=== PATIENT | female | born 1990 | race Hispanic/Latino ===

== ENCOUNTER 2018-03-01 20:21 | Emergency (ER) | payer SELFPAY ==
[2018-03-01] MEDS ORDERED: ACETAMINOPHEN 325 MG TAB ONE (20:36)
== END 2018-03-01 21:34 | disposition home or self-care (01) ==
LOC: EDH 20:21
DX: S93.491A Sprain of other ligament of right ankle, initial encounter (principal); W01.0XXA Fall on same level from slipping, tripping and stumbling without subsequent striking against object, initial encounter; Y93.89 Activity, other specified; Y92.89 Other specified places as the place of occurrence of the external cause; Y99.8 Other external cause status
CPT/HCPCS: 73610

== ENCOUNTER 2019-04-02 22:20 | Emergency (ER) | payer OTHER ==
[2019-04-02 23:39] LABS: RAPID GROUP A STREP NEGATIVE (NEGATIVE)
== END 2019-04-03 00:38 | disposition home or self-care (01) ==
LOC: EDH 22:20
DX: J06.9 Acute upper respiratory infection, unspecified (principal); H92.09 Otalgia, unspecified ear
CPT/HCPCS: 87804; 87880

== ENCOUNTER 2020-01-30 21:41 | Observation (INO) | payer MEDICAID ==
[~2020-01-30] VITALS: Ht 162.6 cm; Wt 75.7 kg
[2020-01-30] MEDS ORDERED: LACTATED RINGERS 1000ML 1,000 ML IV SCH ×2 (22:00→23:30)
[2020-01-30 22:20] LABS: BILIRUBIN,URINE Negative (NEGATIVE); COLOR,URINE Yellow (YELLOW); GLUCOSE, URINE (UA) Negative (NEGATIVE); KETONES,URINE Negative (NEGATIVE); LEUKOCYTE ESTERASE ,URINE Negative (NEGATIVE); NITRATE,URINE Negative (NEGATIVE); OCCULT BLOOD,URINE Negative (NEGATIVE); PH,URINE 7.5 (5.0-8.0); PROTEIN,URINE Negative (NEGATIVE)
[2020-01-30 22:22] LABS: APPEARANCE,URINE CLOUDY (CLEAR)
[2020-01-30 22:29] LABS: AMPHET/METH SCREEN,URINE NEGATIVE (NEGATIVE); BARBITURATE SCREEN, URINE NEGATIVE (NEGATIVE); BENZODIAZEPINES SCREEN,URINE NEGATIVE (NEGATIVE); CANNABINOID SCREEN,URINE NEGATIVE (NEGATIVE); COCAINE SCREEN,URINE NEGATIVE (NEGATIVE); OPIATE SCREEN,URINE NEGATIVE (NEGATIVE); PHENCYCLIDINE SCREEN,URINE NEGATIVE (NEGATIVE)
[2020-01-30 22:57] VITALS: BP 104/59
[2020-01-30] MEDS ORDERED: PREN-196 PO (23:00)
[2020-01-30 23:05] LABS: BACTERIA,URINE Rare /HPF (None Seen); RBC,URINE 0-1 /HPF (0-1); WBC,URINE 0-1 /HPF (0-1)
[2020-01-30 23:06] LABS: AMORPHOUS SEDIMENT,UR Moderate /LPF (None Seen)
[2020-01-30] MEDS ORDERED: CEFTRIAXONE SODIUM 1 GM IVP SCH (23:30)
[2020-01-30] MEDS: TERBUTALINE SULFATE VIAL 1MG/ML SQ SCH (23:53)
[2020-01-31] MEDS: TERBUTALINE SULFATE VIAL 1MG/ML SQ SCH (01:05)
== END 2020-01-31 03:40 | disposition home or self-care (01) ==
LOC: EDH 21:41 → LDH 21:42
PROVIDERS: ADMIT Obstetrics & Gynecology; ATTEND Obstetrics & Gynecology
DX: O99.413 Diseases of the circulatory system complicating pregnancy, third trimester (principal); Z3A.30 30 weeks gestation of pregnancy
CPT/HCPCS: 80305; 81001; 96372 ×2; 96374; 99284; G0378 ×4; J0696; J3105; J7120; 96360; 96361

== ENCOUNTER 2020-03-25 06:21 | Inpatient (IN) | payer MEDICAID ==
[~2020-03-25] VITALS: Ht 162.6 cm; Wt 82.1 kg
[~2020-03-25 06:21] MED LIST: PREN-196 PO
[2020-03-25 07:11] LABS: APPEARANCE,URINE CLEAR (CLEAR); BILIRUBIN,URINE NEGATIVE (NEGATIVE); COLOR,URINE YELLOW (YELLOW); GLUCOSE, URINE (UA) NEGATIVE (NEGATIVE); KETONES,URINE NEGATIVE (NEGATIVE); LEUKOCYTE ESTERASE ,URINE TRACE (NEGATIVE); NITRATE,URINE NEGATIVE (NEGATIVE); OCCULT BLOOD,URINE NEGATIVE (NEGATIVE); PROTEIN,URINE NEGATIVE (NEGATIVE); UROBILINOGEN,URINE 0.2 mg/dL (0.2-1.0)
[2020-03-25 07:25] LABS: BACTERIA,URINE Moderate /HPF (None Seen); RBC,URINE 0-1 /HPF (0-1); WBC,URINE 0-1 /HPF (0-1)
[2020-03-25 07:27] VITALS: BP 139/83
[2020-03-25] MEDS ORDERED: LACTATED RINGERS 1000ML 1,000 ML IV SCH (07:30)
[2020-03-25] MEDS ORDERED: CEFAZOLIN SODIUM 1 GM VIAL IVP PRN (07:30)
[2020-03-25] MEDS ORDERED: CALDOLOR 800MG+NS 250ML 250 ML IV ONE (07:38)
[2020-03-25] MEDS ORDERED: CEFAZOLIN SODIUM 1 GM VIAL ONE (07:38)
[2020-03-25] MEDS ORDERED: LACTATED RINGERS 1000ML 1,000 ML IV ONE (07:38)
[2020-03-25 07:42] LABS: HEMATOCRIT 37.6 % (36-48); MEAN CORPUSCULAR HEMOGLOBIN 29.6 pg (27.0-33.0); MEAN CORPUSCULAR HGB CONC 33.2 g/dL (32.0-36.0); MEAN CORPUSCULAR VOLUME 88.9 fL (79-99); RED BLOOD CELL COUNT(AUTO) 4.23 MIL/uL (4.00-5.50); RED CELL DISTRIBUTION WIDTH 13.9 % (11.0-15.5); WHITE BLOOD COUNT (AUTO) 8.7 K/uL (4.8-10.8)
[2020-03-25] MEDS ORDERED: PHENYLEPHRINE HCL 10 MG/ML 1ML VIAL IV ONE (09:24)
[2020-03-25] MEDS ORDERED: DURAMORPH PF1 MG/ML 10ML AMP IV ONE (09:25)
[2020-03-25] MEDS ORDERED: FENTANYL CITRATE PF 50 MCG/1 ML 2ML VIAL ONE (09:25)
[2020-03-25] MEDS ORDERED: CEFAZOLIN SODIUM 1 GM VIAL IVP ONE (09:40)
[2020-03-25] MEDS ORDERED: OXYTOCIN 10 UNIT/1ML 10ML VIAL ONE (09:56)
[2020-03-25] MEDS ORDERED: ONDANSETRON HCL 4 MG/2 ML VIAL ONE ×2 (10:00→12:54)
[2020-03-25] MEDS ORDERED: METOCLOPRAMIDE 10 MG/2 ML VIAL ONE (10:27)
[2020-03-25] MEDS ORDERED: SODIUM CHLORIDE 0.9% 10 ML VIAL IVP PRN (11:00)
[2020-03-25] MEDS ORDERED: DIPH,PERTUSS(ACELL),TET VAC/PF 0.5 ML VIAL IM SCH (11:00)
[2020-03-25] MEDS ORDERED: ACETAMINOPHEN EXTRA STRENGTH 500 MG TABLET PO PRN (11:00)
[2020-03-25] MEDS ORDERED: PROMETHAZINE HCL 25 MG/ML 1ML AMPULE IM PRN (11:00)
[2020-03-25 12:17] VITALS: BP 135/82
[2020-03-25] MEDS ORDERED: BISACODYL 10 MG SUPP.RECT RC PRN (12:30)
[2020-03-25] MEDS ORDERED: DIPHENHYDRAMINE HCL 25 MG CAPSULE PO PRN (12:30)
[2020-03-25] MEDS ORDERED: DEXTROSE 5 %-0.45 % NACL 1,000 ML IV PRN (12:30)
[2020-03-25] MEDS ORDERED: OXYTOCIN-LR 20 UNITS/1000 ML 1,000 ML IV PRN (12:30)
[2020-03-25] MEDS ORDERED: LANOLIN 30GM OINTMENT TP PRN (12:30)
[2020-03-25] MEDS ORDERED: ACETAMINOPHEN-CODEINE 300/30MG TAB PO PRN (12:45)
[2020-03-25] MEDS: HYDROCODONE/ACETAMINOPHEN 5/325 MG TAB PO PRN ×2 (12:50→21:40)
[2020-03-25] MEDS ORDERED: MEASLES/MUMPS/RUBELLA VACCINE, LIVE 0.5 ML/VIAL SQ SCH (13:00)
[2020-03-25] MEDS ORDERED: MEPERIDINE-PF 75 MG/ML SYG IM PRN (13:00)
[2020-03-25] MEDS ORDERED: ONDANSETRON HCL 4 MG/2 ML VIAL IVP PRN (13:30)
[2020-03-25] MEDS ORDERED: DiphenhydrAMINE HCL 50 MG/ML VIAL IVP PRN (13:30)
[2020-03-25] MEDS ORDERED: LORATADINE 10 MG TABLET PO PRN (13:30)
[2020-03-25] MEDS ORDERED: NALOXONE HCL 0.4 MG/1 ML ML IVP PRN ×3 (13:30)
[2020-03-25 16:33] VITALS: BP 128/82
[2020-03-25] MEDS: CALDOLOR 800MG+NS 250ML 250 ML IV SCH (18:40)
[2020-03-25 19:33] VITALS: BP 138/76
--- NOTE | 2020-03-25 21:20 | NUR ---
ACTIVITY ASSISTED TO SIDE OF BED TO DANGLE, TOLERATED WELL, UP TO CHAIR, NO COMPLAINTS, HOLDING , SPOUSE AT SIDE Addendum: 03/26/20 at 0539 by EDUARDA HAMILTON LVN Amended: Links added.
[2020-03-25] MEDS: DOCUSATE SODIUM 100 MG CAP PO SCH (21:52)
[2020-03-25] MEDS: SIMETHICONE 80 MG TAB.CHEW PO PRN (21:53)
[2020-03-25 23:53] VITALS: BP 120/70
[2020-03-26] MEDS: CALDOLOR 800MG+NS 250ML 250 ML IV SCH (02:49)
[2020-03-26 03:33] VITALS: BP 118/56
--- NOTE | 2020-03-26 04:15 | NUR ---
BERMAN CATHETER F/C REMOVED, INTACT, TOLERATED WELL, SHAUNA CARE GIVEN INSTRUCTED TO CALL NURSE FOR ASSISTANCE Addendum: 03/26/20 at 0541 by EDUARDA HAMILTON LVN Amended: Links added.
[2020-03-26 05:32] LABS: HEMATOCRIT 30.6 % (36-48); MEAN CORPUSCULAR HGB CONC 32.7 g/dL (32.0-36.0); MEAN CORPUSCULAR VOLUME 88.7 fL (79-99); RED BLOOD CELL COUNT(AUTO) 3.45 MIL/uL (4.00-5.50); RED CELL DISTRIBUTION WIDTH 14.2 % (11.0-15.5); WHITE BLOOD COUNT (AUTO) 11.6 K/uL (4.8-10.8)
[2020-03-26] MEDS: HYDROCODONE/ACETAMINOPHEN 5/325 MG TAB PO PRN (07:32)
[2020-03-26 07:39] VITALS: BP 126/70
[2020-03-26 08:11] LABS: HEPATITIS Bs ANTIGEN SCREEN P Negative (Negative)
[2020-03-26] MEDS ORDERED: LIDOCAINE 5% TOPICAL PATCH TP SCH (09:00)
[2020-03-26] MEDS: DOCUSATE SODIUM 100 MG CAP PO SCH (09:02)
[2020-03-26] MEDS: SIMETHICONE 80 MG TAB.CHEW PO PRN (09:02)
[2020-03-26] MEDS ORDERED: IBUPROFEN 800 MG TAB PO SCH (11:00)
[2020-03-26 11:51] VITALS: BP 142/79
--- NOTE | 2020-03-26 16:25 | NUR ---
DISCHARGE PT LEFT UNIT VIA WHEELCHAIR, WITH BABY IN ARMS, ACCOMPANIED BY SIGNIFICANT OTHER. DENIED PAIN AND HAD NO COMPLAINTS. BABY STRAPPED IN CAR SEAT. PT AND BABY TRANSPORTED BY PERSONAL VEHICLE.
== END 2020-03-26 16:25 | disposition home or self-care (01) | DRG 540 ==
LOC: OBSVTOIN 06:21 → LDH 06:21 → WSH 12:00
PROVIDERS: ADMIT Obstetrics & Gynecology; ATTEND Obstetrics & Gynecology
PROC: 0DNU0ZZ Release Omentum, Open Approach (ICD-10-PCS; 2020-03-25)
PROC: 0UN90ZZ Release Uterus, Open Approach (ICD-10-PCS; 2020-03-25)
PROC: 3E0234Z Introduction of Serum, Toxoid and Vaccine into Muscle, Percutaneous Approach (ICD-10-PCS; 2020-03-25)
PROC: 3E0134Z Introduction of Serum, Toxoid and Vaccine into Subcutaneous Tissue, Percutaneous Approach (ICD-10-PCS; 2020-03-25)
PROC: 0TNB0ZZ Release Bladder, Open Approach (ICD-10-PCS; 2020-03-25)
PROC: 10D00Z1 Extraction of Products of Conception, Low, Open Approach (ICD-10-PCS; principal; 2020-03-25 09:38)
DX: O34.211 Maternal care for low transverse scar from previous cesarean delivery (principal); K66.0 Peritoneal adhesions (postprocedural) (postinfection); O99.62 Diseases of the digestive system complicating childbirth; Z3A.38 38 weeks gestation of pregnancy; Z37.0 Single live birth; Z23 Encounter for immunization
CPT/HCPCS: 36415; 59510; 81001; 85027; 86592; 86850; 86900; 86901; 87088; 87340; A4344; G0378; J0690; J1741; J2274; J2370; J2405; J2590; J2765; J3010; J7120

== ENCOUNTER 2020-07-15 11:24 | Observation (INO) | payer MEDICAID ==
[~2020-07-15] VITALS: Ht 162.6 cm; Wt 78.0 kg
[2020-07-15 13:51] VITALS: BP 125/80
[2020-07-15 14:57] LABS: MEAN CORPUSCULAR HEMOGLOBIN 21.9 pg (27.0-33.0); MEAN CORPUSCULAR HGB CONC 28.4 g/dL (32.0-36.0); PLATELET COUNT (AUTO) 272 K/uL (130-400); RED BLOOD CELL COUNT(AUTO) 2.56 MIL/uL (4.00-5.50); RED CELL DISTRIBUTION WIDTH 15.3 % (11.0-15.5); WHITE BLOOD COUNT (AUTO) 9.7 K/uL (4.8-10.8)
[2020-07-15 15:04] LABS: HEMATOCRIT 19.7 % (36-48)
--- NOTE | 2020-07-15 15:50 | NUR ---
FIRST UNIT OF PRBC STARTED AT THIS TIME. SYMPTOMS TO REPORT REVIEWED WITH PATIENT. PATIENT VOICED UNDERSTANDING.
[2020-07-15 15:55] VITALS: BP 117/64
--- NOTE | 2020-07-15 17:55 | NUR ---
FIRST UNIT OF PRBC COMPLETED AT THIS TIME. NO TRANSFUSION REACTION REPORTED
--- NOTE | 2020-07-15 18:38 | NUR ---
SECOND UNIT OF PRBC STARTED AT THIS TIME. SYMPTOMS TO REPORT REVIEWED WITH PATIENT. PATIENT VOICED UNDERSTANDING.
[2020-07-15 19:29] VITALS: BP 113/70
--- NOTE | 2020-07-15 21:10 | NUR ---
SECOND UNIT PRBC INFUSED, DISCHARGE INSTUCTION GIVEN, PT. VERBALIZED UNDERSTANDING.
--- NOTE | 2020-07-15 21:30 | NUR ---
PT. DISCHARGED HOME. TAKEN TO CAR VIA WC BY GAIL [employer]Y. NO S/S OF BLOOD TRANSFUSION REACTION NOTED OR REPORTED. DENIED PAIN AND DISCOMFORT.
== END 2020-07-15 21:30 | disposition home or self-care (01) ==
LOC: EDH 11:24 → EDHIP 11:44 → WSH 13:40
PROVIDERS: ADMIT Obstetrics & Gynecology; ATTEND Obstetrics & Gynecology
DX: N92.6 Irregular menstruation, unspecified (principal); D64.9 Anemia, unspecified; D69.6 Thrombocytopenia, unspecified
CPT/HCPCS: 36415; 36430; 85027; 86850; 86900; 86901; 86923 ×2; 99284; G0378 ×5; P9016 ×2

== ENCOUNTER 2021-07-30 17:52 | Emergency (ER) | payer MEDICAID ==
[~2021-07-30] VITALS: Ht 162.6 cm; Wt 77.1 kg
[2021-07-30 17:53] VITALS: BP 127/80
[2021-07-30 18:26] LABS: BILIRUBIN,URINE Negative (NEGATIVE); COLOR,URINE Yellow (YELLOW); GLUCOSE, URINE (UA) Negative (NEGATIVE); KETONES,URINE Negative (NEGATIVE); LEUKOCYTE ESTERASE ,URINE Negative (NEGATIVE); NITRATE,URINE Negative (NEGATIVE); OCCULT BLOOD,URINE Negative (NEGATIVE); PROTEIN,URINE Negative (NEGATIVE)
[2021-07-30 18:44] LABS: MUCUS,URINE Many LPF (None Seen); SQUAMOUS EPITHELIAL CELL,UR 50-100 /HPF (0-2)
[2021-07-30 18:45] LABS: APPEARANCE,URINE CLEAR (CLEAR)
[2021-07-30 18:46] LABS: AMORPHOUS SEDIMENT,UR Few /LPF (None Seen)
[2021-07-30 18:48] LABS: BACTERIA,URINE Few /HPF (None Seen)
[2021-07-30] MEDS ORDERED: ORPH100 PO (19:00)
[2021-07-30] MEDS ORDERED: LIDOP TD (19:00)
[2021-07-30] MEDS ORDERED: NAPR-1180 PO (19:00)
== END 2021-07-30 19:05 | disposition home or self-care (01) ==
LOC: EDH 17:52
DX: S39.012A Strain of muscle, fascia and tendon of lower back, initial encounter (principal); Z79.899 Other long term (current) drug therapy; X58.XXXA Exposure to other specified factors, initial encounter; Y93.89 Activity, other specified; Y92.89 Other specified places as the place of occurrence of the external cause; Y99.8 Other external cause status
CPT/HCPCS: 81001; 81003; 81025

== ENCOUNTER 2022-07-21 13:56 | Emergency (ER) | payer MEDICAID ==
[~2022-07-21] VITALS: Ht 162.6 cm; Wt 77.1 kg
[~2022-07-21 13:56] MED LIST changes: +LIDOP TD; +NAPR-1180 PO; +ORPH100 PO
[2022-07-21 14:00] VITALS: BP 144/84
[2022-07-21] MEDS ORDERED: LIDOCAINE HCL 1% 20 ML VIAL INJ SCH (14:30)
[2022-07-21] MEDS ORDERED: SULF1TAB42 PO (14:54)
[2022-07-21] MEDS ORDERED: IBUP-2071 PO (14:54)
== END 2022-07-21 15:32 | disposition home or self-care (01) ==
LOC: EDH 13:56
DX: L72.3 Sebaceous cyst (principal); L02.213 Cutaneous abscess of chest wall; Z79.899 Other long term (current) drug therapy
CPT/HCPCS: 10061